=== PATIENT | female | born 1975 | race Caucasian/White ===

== ENCOUNTER 2020-01-15 20:38 | Emergency (ER) | payer OTHER, MEDICAID ==
[~2020-01-15] VITALS: Ht 177.8 cm; Wt 113.4 kg
--- NOTE | 2020-01-15 20:40 | NUR ---
Dr. Cruz examining patient.
--- NOTE | 2020-01-15 20:40 | NUR ---
PT MIKKI WHEELER. TAKEN TO BED 11
[2020-01-15 20:43] VITALS: BP 119/74
--- NOTE | 2020-01-15 20:43 | NUR ---
PT AMBULATED TO WITH ASSIST
--- NOTE | 2020-01-15 20:49 | NUR ---
PT RETURNED FROM RR WITH ASSIST. PT PLACED ON CARDIAC MONTIOR. BED LOCKED AND IN LOWEST POSITION.
--- NOTE | 2020-01-15 20:52 | NUR ---
44 YO F BIBA FOR C/C OF 10/10 LEFT KNEE PAIN AFTER FALLING WHILE WALKING AT [facility]. PT HAS FULL RANGE OF MOTION AT THE JOINT. KNEE IS EDEMATOUS AND SLIGHTY BRUISED WITH A SUPERFICIAL ABRAISION. PT DENIES TAKING ANY MEDICATION FOR THE PAIN. DENIES FEVER, COUGH, TRAVEL, AND SOB. BED LOCKED AND IN LOWEST POSITION. SIDE RAILS X1. CARDIAC MONTIOR IN PLACE. ALLERGIES TO PENICILLIN, ASPIRIN MED HX: SCHIZO AFFECTIVE SCHIZOPHRENIA, JAW SURGEY 1999, KNEE SURGERY 1987 RX: FUROSEMIDE, TOPIRAMATE, TRIHEXYPHEN, SERTRALINE, BUSPIRONE, VALPORIC ACID, CLONAZEPAM
--- NOTE | 2020-01-15 20:53 | NUR ---
ERMD AT BEDSIDE EVALUATING PT
--- NOTE | 2020-01-15 20:55 | NUR ---
EMT AT BEDSIDE CLEANING AND WRAPPING LEFT KNEE.
[2020-01-15] MEDS ORDERED: IBUPROFEN 800 MG TAB PO ONE (21:00)
--- NOTE | 2020-01-15 22:00 | NUR ---
PT RESTING IN BED COMFORTABLY. 10/10 PAIN REDUCED TO 0/10. SAFETY MEASURES IN PLACE.
--- NOTE | 2020-01-15 23:06 | NUR ---
Patient discharged with v/s stable. Written and verbal after care instructions given and explained. Patient alert, oriented and verbalized understanding of instructions. Ambulatory with steady gait. All questions addressed prior to discharge. ID band removed. Patient advised to follow up with PMD. Rx of CIPRO, PREDNISONE, MOTRIN given. Patient educated on indication of medication including possible reaction and side effects. Opportunity to ask questions provided and answered. PT PICKED UP BY TRANSPORTATION FROM [facility].
== END 2020-01-15 23:06 | disposition home or self-care (01) ==
LOC: MED 20:38
DX: S80.02XA Contusion of left knee, initial encounter (principal); S80.212A Abrasion, left knee, initial encounter; N39.0 Urinary tract infection, site not specified; R05 Cough; Z88.0 Allergy status to penicillin; Z88.1 Allergy status to other antibiotic agents; Z98.890 Other specified postprocedural states; W19.XXXA Unspecified fall, initial encounter; Y93.89 Activity, other specified; Y92.89 Other specified places as the place of occurrence of the external cause; Y99.8 Other external cause status
CPT/HCPCS: 81002; 81025; 99282

== ENCOUNTER 2021-05-02 20:08 | Emergency (ER) | payer OTHER, MEDICAID ==
[~2021-05-02] VITALS: Ht 177.8 cm; Wt 101.2 kg
[2021-05-02 20:30] VITALS: BP 160/82
[2021-05-02] MEDS ORDERED: HYDROcodone/APAP 5/325 MG 1 TAB TAB PO ONE (23:10)
--- NOTE | 2021-05-03 00:50 | NUR ---
d/c with VSS> d/c education given. opportunity to ask questions given and answered. provided pt with homeless meal. provided with referral to [facility] clinic.
== END 2021-05-03 00:50 | disposition home or self-care (01) ==
LOC: MED 20:08
DX: S09.90XA Unspecified injury of head, initial encounter (principal); Y04.8XXA Assault by other bodily force, initial encounter; Y93.89 Activity, other specified; Y92.89 Other specified places as the place of occurrence of the external cause; Y99.8 Other external cause status
CPT/HCPCS: 70450; 99284

== ENCOUNTER 2022-08-07 17:14 | Inpatient (IN) | payer OTHER, MEDICAID ==
[~2022-08-07] VITALS: Ht 162.6 cm; Wt 115.7 kg
[2022-08-07 17:26] VITALS: BP 141/80
[2022-08-07 18:19] LABS: BASOPHILS % (AUTO) 0.3 % (0.0-2.0); HEMATOCRIT 41.1 % (36-48); HEMOGLOBIN 13.8 g/dL (12.0-16.0); LYMPHOCYTES % (AUTO) 7.7 % (20.5-51.1); MEAN CORPUSCULAR HEMOGLOBIN 32 pg (27-31); MEAN CORPUSCULAR HGB CONC 34 g/dL (33-37); MEAN CORPUSCULAR VOLUME 94.1 fL (80-94); MONOCYTES # (AUTO) 1.7 K/uL (0.8-1.0); MONOCYTES % (AUTO) 13.4 % (1.7-9.3); NEUTROPHILS # (AUTO) 9.9 K/uL (1.8-7.7); NEUTROPHILS % (AUTO) 78.6 % (42.2-75.2); PLATELET COUNT (AUTO) 142 K/uL (140-450); RED BLOOD CELL COUNT(AUTO) 4.37 MIL/uL (4.20-5.40); RED CELL DISTRIBUTION WIDTH 13.7 % (11.6-13.7); WHITE BLOOD COUNT (AUTO) 12.7 K/uL (4.8-10.8)
[2022-08-07 18:39] LABS: ANION GAP 10.9 (8-16); CARBON DIOXIDE 26.5 mmol/L (21-32); CREATININE 1.2 mg/dL (0.6-1.3); POTASSIUM 3.4 mmol/L (3.5-5.1)
[2022-08-07 18:51] LABS: TOTAL BILIRUBIN 0.6 mg/dL (0.0-1.0)
[2022-08-07 20:08] LABS: APPEARANCE,URINE CLOUDY (CLEAR); BILIRUBIN,URINE 1+ (NEGATIVE); BLOOD, URINE 3+ (NEGATIVE); COLOR,URINE YELLOW (YELLOW); LEUKOCYTE ESTERASE ,URINE 3+ (NEGATIVE); NITRITE, URINE NEGATIVE (NEGATIVE); PH,URINE 8.5 (5.0-9.0); UGLUCOSE NEGATIVE (NEGATIVE)
[2022-08-07 20:22] LABS: RBC,URINE 0-5 /HPF (0-5)
--- NOTE | 2022-08-07 23:13 | NUR ---
PT TO BED #11
--- NOTE | 2022-08-07 23:30 | NUR ---
URINE COLLECTED AND WALKED TO LAB
--- NOTE | 2022-08-07 23:30 | NUR ---
PATIENT CHANGED AND PROVIDED NEW LINEN. BED LOW AND LOCKED. TENNILLE SIDE RAILS FOR SAFETY.
[2022-08-08] MEDS ORDERED: OLANZapine 5 MG TAB PO STA (00:01)
[2022-08-08] MEDS ORDERED: cefTRIAXone 1,000 MG VIAL ONE (01:46)
--- NOTE | 2022-08-08 02:54 | NUR ---
MED REC COMPLETED.
--- NOTE | 2022-08-08 02:58 | NUR ---
PATIENT RESTING WITH EYES CLOSED. DOESNT APPEAR TO BE IN DISTRESS. PATIENT PLACED ON BEDSIDE MONITOR, VSS. BED LOW AND LOCKED. TENNILLE SIDE RAILS FOR SAFETY. ALL NEEDS MET.
--- NOTE | 2022-08-08 05:55 | NUR ---
Patient will be admitted to care of MD Larios. Admited to Med/Surg. Will go to room 121B. Belongings list completed. Report to RAFITA Martin.
--- NOTE | 2022-08-08 05:55 | NUR ---
Report called to med/surg RAFITA Martin. Transfer of care.
[2022-08-08 06:22] VITALS: BP 142/92
--- NOTE | 2022-08-08 06:43 | NUR ---
RECEIVED REPORT OF PATIENT COMING TO 121B BY CAROLYN COMPUTER COMPOSITOR AND DIAN RN. PATIENT WAS STABLE DURING THE TRANSFER. PATIENT WAS TRANSFERRED IN WHEEL CHAIR ABLE TO GO TO THE RESTROOM INDEPENDENTLY. PATIENT CONTINUES TO ASK STAFF TO DO THING FOR HER THAT SHE IS CAPABLE OF DOING. GAVE PATIENT EDUCATION ON THE HOSPITAL, ROOM AND CALL LIGHT FUNCTIONS. PATIENT WAS REMINDED TO ASK FOR ASSISTANCE NOT FOR NURSING TO DO EVERYTHING FOR HER. PATIENT UNDERSTOOD AND REPEATED MULTIPLE TIMES. SKIN CLEAN BUT NURSING NOTED REDNESS TO RIGHT CHIN AND DRY SKIN. NO NOTED OPEN SOARS. PATIENT DENIED ANY PAIN/DISCOMFORT. NO NOTED RESPIRATORY DISTRESS ON ROOM AIR. SIDE RAILS UP X 2. CALL LIGHT WITHIN REACH FOR ASSISTANCE. [id number]
--- NOTE | 2022-08-08 07:33 | NUR ---
GOT REPORT FROM THE NIGHT NURSE, PT SEEPING NO SOB. [id number]
--- NOTE | 2022-08-08 11:06 | NUR ---
DC PLANNING ATTEMPTED TO MEET PT AT BEDSIDE HOWEVER, PT HEAVILY SLEEPING AND COULD NOT STAY UP LONG ENOUGH TO COMPLETE ASSESSMENT. Addendum: 08/11/22 at 1344 by Josh Che SS attempted to complete assessment with pt however, pt would not speak and refused to participate in assessment. pt wrote down on a piece of paper that information was top secret. aleisha called Zulema , [facility] admin who reports pt can return to facility. Zulema reports they will p/up pt. Zulema to call pt nurse for update on meds needed and preferred pharmacy.
--- NOTE | 2022-08-08 11:25 | NUR ---
PATIENT HAS BEEN SCREENED AND CATEGORIZED LOW NUTRITION RISK. PATIENT WILL BE SEEN WITHIN 7 DAYS OF ADMISSION. 08/14/[address]
[2022-08-08] MEDS ORDERED: ACETAMINOPHEN 325 MG TAB PO PRN (11:30)
[2022-08-08] MEDS ORDERED: HYDROcodone/APAP 7.5/325 MG 1 TAB PO PRN (11:30)
[2022-08-08] MEDS ORDERED: ONDANSETRON 4 MG/2 ML VIAL IVP PRN (11:30)
[2022-08-08 11:38] VITALS: BP 113/63
[2022-08-08] MEDS: NACL 0.9% 1,000 ML IV SCH (11:56)
[2022-08-08 13:13] LABS: BASOPHILS % (AUTO) 0.4 % (0.0-2.0); EOSINOPHILS # (AUTO) 0.1 K/uL (0-0.4); EOSINOPHILS % (AUTO) 0.7 % (0.0-4.0); HEMATOCRIT 37.9 % (36-48); HEMOGLOBIN 12.6 g/dL (12.0-16.0); LYMPHOCYTES # (AUTO) 1.3 K/uL (2.5-16.5); LYMPHOCYTES % (AUTO) 12.5 % (20.5-51.1); MEAN CORPUSCULAR HEMOGLOBIN 31 pg (27-31); MEAN CORPUSCULAR HGB CONC 33 g/dL (33-37); MEAN CORPUSCULAR VOLUME 94.1 fL (80-94); MONOCYTES % (AUTO) 18.5 % (1.7-9.3); NEUTROPHILS # (AUTO) 7.2 K/uL (1.8-7.7); NEUTROPHILS % (AUTO) 67.9 % (42.2-75.2); PLATELET COUNT (AUTO) 141 K/uL (140-450); RED BLOOD CELL COUNT(AUTO) 4.02 MIL/uL (4.20-5.40); RED CELL DISTRIBUTION WIDTH 13.6 % (11.6-13.7); WHITE BLOOD COUNT (AUTO) 10.6 K/uL (4.8-10.8)
[2022-08-08 13:21] LABS: ANION GAP 9.4 (8-16); CARBON DIOXIDE 29.1 mmol/L (21-32); CREATININE 0.8 mg/dL (0.6-1.3); POTASSIUM 3.5 mmol/L (3.5-5.1)
[2022-08-08 13:33] LABS: AMYLASE 41 U/L (25-115); CHOL/HDL RATIO 3.1 (1-4.5); FREE T4 (FREE THYROXINE) 1.15 ng/dL (0.76-1.46); HDL CHOLESTEROL 44 mg/dL (40-60); LDL (CALC) 74 mg/dL (60-100); LIPASE 116 U/L (73-393); MAGNESIUM 2.1 mg/dL (1.8-2.4); PHOSPHORUS 3.5 mg/dL (2.5-4.9); THYROID STIMULATING HORMONE 1.91 uIU/mL (0.34-3.74); TRIGLYCERIDES 86 mg/dL (30-150)
[2022-08-08 13:56] LABS: PROTHROMBIN TIME 11.7 secs (10.8-13.4)
[2022-08-08 16:00] VITALS: BP 126/73
--- NOTE | 2022-08-08 18:54 | NUR ---
PT WAS SLEEPING ALMOST ALL DAY, NO PAIN , JUST SAYS SHE IS WEAK AND DON;T FEEL GOOD [id number]
[2022-08-08] MEDS: DOCUSATE SODIUM 100 MG GELCAP PO SCH (20:43)
[2022-08-08 21:07] VITALS: BP 115/55
[2022-08-09 04:41] VITALS: BP 148/78
[2022-08-09] MEDS: NACL 0.9% 1,000 ML IV SCH (05:43)
[2022-08-09 06:12] LABS: BASOPHILS % (AUTO) 0.4 % (0.0-2.0); EOSINOPHILS # (AUTO) 0.1 K/uL (0-0.4); EOSINOPHILS % (AUTO) 0.7 % (0.0-4.0); HEMATOCRIT 37.5 % (36-48); HEMOGLOBIN 12.7 g/dL (12.0-16.0); LYMPHOCYTES # (AUTO) 2.2 K/uL (2.5-16.5); LYMPHOCYTES % (AUTO) 20.8 % (20.5-51.1); MEAN CORPUSCULAR HEMOGLOBIN 32 pg (27-31); MEAN CORPUSCULAR HGB CONC 34 g/dL (33-37); MEAN CORPUSCULAR VOLUME 94.6 fL (80-94); MONOCYTES % (AUTO) 19.4 % (1.7-9.3); NEUTROPHILS # (AUTO) 6.1 K/uL (1.8-7.7); NEUTROPHILS % (AUTO) 58.7 % (42.2-75.2); PLATELET COUNT (AUTO) 122 K/uL (140-450); RED BLOOD CELL COUNT(AUTO) 3.97 MIL/uL (4.20-5.40); RED CELL DISTRIBUTION WIDTH 13.5 % (11.6-13.7); WHITE BLOOD COUNT (AUTO) 10.4 K/uL (4.8-10.8)
[2022-08-09 06:24] LABS: MAGNESIUM 1.9 mg/dL (1.8-2.4); PHOSPHORUS 3.4 mg/dL (2.5-4.9)
[2022-08-09 06:28] LABS: ANION GAP 10.4 (8-16); CARBON DIOXIDE 29.2 mmol/L (21-32); CREATININE 0.9 mg/dL (0.6-1.3); POTASSIUM 3.6 mmol/L (3.5-5.1)
[2022-08-09] MEDS: DOCUSATE SODIUM 100 MG GELCAP PO SCH ×2 (09:00→20:20)
[2022-08-09] MEDS: PANTOPRAZOLE 40 MG INJ VIAL IVP SCH (09:00)
[2022-08-09 10:00] VITALS: BP 142/71
[2022-08-09 13:00] VITALS: BP 140/68
[2022-08-09 16:30] VITALS: BP 140/72
--- NOTE | 2022-08-09 19:25 | NUR ---
RECEIVED REPORT FROM DAY NURSE FOR CONTINUITY OF CARE. PATIENT LYING ON THE BED, NO SIGNS OF PAIN NOTED, NO SIGNS OF DISTRESS NOTED.
[2022-08-09 20:00] VITALS: BP 112/68
--- NOTE | 2022-08-09 20:25 | NUR ---
DUE MEDICATION GIVEN ORDERED, PATIENT C/O HEADACHE, GIVEN PRN TYLENOL 650MG. CALL LIGHT WITHIN REACH. SAFETY PRECAUTIONS IN PLACE. WILL CONTINUE TO MONITOR THE PATIENT.
--- NOTE | 2022-08-09 23:15 | NUR ---
DUE MEDICATION GIVEN ORDERED, PATIENT DENIES PAIN, NO SIGNS OF DISTRESS NOTED. BEDSIDE CARE DONE. CALL LIGHT WITHIN REACH. BED LOCKED AND IN LOW POSITION. WILL CONTINUE TO MONITOR THE PATIENT.
[2022-08-10] VITALS: BP 108/59
--- NOTE | 2022-08-10 01:07 | NUR ---
PATIENT IS ASLEEP, NO SIGNS OF PAIN NOTED, NO SIGNS OF DISTRESS NOTED. CALL LIGHT WITHIN REACH.
[2022-08-10] MEDS: NACL 0.9% 1,000 ML IV SCH (03:19)
[2022-08-10 04:00] VITALS: BP 107/64
--- NOTE | 2022-08-10 04:10 | NUR ---
MORNING CARE DONE, VITALS T 97.2, P 71, BP 107/64, RESP 18, O2 SATS 97% ON ROOM AIR. PATIENT DENIES PAIN, NO SIGNS OF DISTRESS NOTED. IV LINE ON RIGHT WRIST G22, RUNNING NS 0.9% 50MLS/HR. CALL LIGHT WITHIN REACH, SAFETY PRECAUTIONS IN PLACE. WILL CONTINUE TO MONITOR THE PATIENT.
--- NOTE | 2022-08-10 07:17 | NUR ---
ENDORSED PATIENT TO DAY NURSE FOR CONTINUITY OF CARE. PATIENT IS STABLE.
--- NOTE | 2022-08-10 07:46 | NUR ---
GOT REPORT FROM THE NIGHT NURSE, PT SITTING AT BED, NO SOB DISCUSSED THE POC. [id number]
[2022-08-10 08:00] VITALS: BP 104/69
[2022-08-10] MEDS: PANTOPRAZOLE 40 MG INJ VIAL IVP SCH (08:49)
[2022-08-10] MEDS: DOCUSATE SODIUM 100 MG GELCAP PO SCH ×2 (08:50→20:35)
[2022-08-10 11:14] LABS: BASOPHILS % (AUTO) 0.5 % (0.0-2.0); EOSINOPHILS # (AUTO) 0.2 K/uL (0-0.4); EOSINOPHILS % (AUTO) 1.7 % (0.0-4.0); HEMATOCRIT 39.1 % (36-48); HEMOGLOBIN 12.9 g/dL (12.0-16.0); LYMPHOCYTES # (AUTO) 2.3 K/uL (2.5-16.5); LYMPHOCYTES % (AUTO) 22.8 % (20.5-51.1); MEAN CORPUSCULAR HEMOGLOBIN 31 pg (27-31); MEAN CORPUSCULAR HGB CONC 33 g/dL (33-37); MEAN CORPUSCULAR VOLUME 94.6 fL (80-94); MONOCYTES # (AUTO) 1.6 K/uL (0.8-1.0); MONOCYTES % (AUTO) 16.2 % (1.7-9.3); NEUTROPHILS # (AUTO) 5.8 K/uL (1.8-7.7); NEUTROPHILS % (AUTO) 58.8 % (42.2-75.2); PLATELET COUNT (AUTO) 166 K/uL (140-450); RED BLOOD CELL COUNT(AUTO) 4.13 MIL/uL (4.20-5.40); RED CELL DISTRIBUTION WIDTH 13.9 % (11.6-13.7); WHITE BLOOD COUNT (AUTO) 9.9 K/uL (4.8-10.8)
[2022-08-10 11:46] LABS: ANION GAP 14.5 (8-16); CARBON DIOXIDE 27.2 mmol/L (21-32); CREATININE 0.8 mg/dL (0.6-1.3); POTASSIUM 3.7 mmol/L (3.5-5.1)
[2022-08-10 11:50] LABS: PHOSPHORUS 3.4 mg/dL (2.5-4.9)
[2022-08-10 12:00] VITALS: BP 115/72
[2022-08-10 17:23] VITALS: BP 98/68
--- NOTE | 2022-08-10 19:00 | NUR ---
RECEIVED REPORT FROM DAY NURSE FOR CONTINUITY OF CARE. IV SITE INFILTRATED. ASSUMED CARE.
--- NOTE | 2022-08-10 19:22 | NUR ---
PT IV INFILTRATED, TRIED TO START IV PT REFUSED , INFORMED HER THAT SHE NEEDS IV ANTIBIOTIC AND PT SAYS " I REFUSED" I DO NOT WANT, PASSED TO THE NIGHT NURSE, INCASE PT CHANGE HER MIND.[email or web address]
[2022-08-10 20:00] VITALS: BP 155/95
--- NOTE | 2022-08-10 20:36 | NUR ---
DUE MEDICATION GIVEN ORDERED. PATIENT IS SITTING ON THE CHAIR, DENIES PAIN, NO DISTRESS NOTED. PATIENT IS WEARING NON SKID SOCKS. WILL CONTINUE TO MONITOR THE PATIENT.
--- NOTE | 2022-08-10 20:59 | NUR ---
NOTIFIED DR FROST THAT THE PATIENT IV GOT INFILTRATED AND PT REFUSED TO PLACE A NEW IV AND REFUSED TELE MONITOR. DR FROST AWARE AND NEW ORDERS GIVEN AND WILL CARRY IT OUT.
--- NOTE | 2022-08-10 21:41 | NUR ---
CALLED [employer] [phone], SPOKE WITH [employer] ([employer] COMPLIANCE MANAGER) AND MADE AWARE THAT THERE IS AN ORDER FOR PSYCH CONSULT WITH DR SOLITARIO. AWAITING FOR MD TO CALL BACK.
--- NOTE | 2022-08-10 21:44 | NUR ---
DR SOLITARIO CALLED BACK AND GAVE BRIEF REPORT ABOUT THE PATIENT. PER DR SOLITARIO HE WILL BE HERE TOMORROW TO SEE THE PATIENT. NO FURTHER ORDER GIVEN.
[2022-08-10] MEDS ORDERED: cefTRIAXone 1,000 MG VIAL IM SCH (23:00)
--- NOTE | 2022-08-10 23:14 | NUR ---
PATIENT IS STILL SITTING AT THE FOOT SIDE OF ROOM MATE'S BED, PATIENT IS WEARING NON SKID SOCKS. PATIENT DENIES PAIN OR DISCOMFORT AT THIS TIME. WILL CONTINUE TO MONITOR THE PATIENT.
[2022-08-11] VITALS: BP 158/59
--- NOTE | 2022-08-11 01:49 | NUR ---
PATIENT LYING ON THE BED, AWAKE, DENIES PAIN, NO SIGNS OF DISTRESS NOTED. CALL LIGHT WITHIN REACH. BED IN LOW AND LOCKED POSITION. WILL CONTINUE TO MONITOR THE PATIENT.
--- NOTE | 2022-08-11 03:30 | NUR ---
PATIENT AWAKE AND LAYING IN BED QUIETLY STATE THAT SHE IS TRYING TO RELAX. ASSISTED THE PATIENT TO THE BATHROOM AND BACK TO BED. HAD BM.
[2022-08-11 04:00] VITALS: BP 135/80
--- NOTE | 2022-08-11 06:19 | NUR ---
NO ACUTE EVENT THROUGHOUT THE NIGHT. PATIENT STABLE AND NOT ON ANY DISTRESS. ALL NEEDS ATTENDED. CALL LIGHT WITHIN REACH. WILL ENDORSE THE PATIENT TO THE ONCOMING NURSE FOR CONTINUITY OF CARE.
--- NOTE | 2022-08-11 07:23 | NUR ---
ENDORSED PATIENT TO DAY NURSE FOR CONTINUITY OF CARE. PATIENT IS STABLE.
[2022-08-11 08:00] VITALS: BP 96/65
[2022-08-11] MEDS: PANTOPRAZOLE 40 MG INJ VIAL IVP SCH (08:28)
[2022-08-11] MEDS: DOCUSATE SODIUM 100 MG GELCAP PO SCH (08:29)
[2022-08-11 12:00] VITALS: BP 108/68
[2022-08-11] MEDS ORDERED: QUET50TA PO (13:48)
[2022-08-11 14:27] VITALS: BP 108/68
--- NOTE | 2022-08-11 15:24 | NUR ---
DISCHARGE INSTRUCTIONS AND PLAN OF CARE DISCUSSED WITH PATIENT. PATIENT VERBALIZED UNDERSTANDING. PATIENT PICKED UP BY [facility]. Linda DOYLE RN.
== END 2022-08-11 16:05 | disposition home or self-care (01) | DRG 871 ==
LOC: MED 17:14 → MTU 22:53
DX: A41.9 Sepsis, unspecified organism (principal); G93.41 Metabolic encephalopathy; N39.0 Urinary tract infection, site not specified; E44.1 Mild protein-calorie malnutrition; J98.11 Atelectasis; Z68.41 Body mass index [BMI] 40.0-44.9, adult; E87.5 Hyperkalemia; F31.9 Bipolar disorder, unspecified; I10 Essential (primary) hypertension; E66.9 Obesity, unspecified; R48.0 Dyslexia and alexia; F20.9 Schizophrenia, unspecified; Z88.0 Allergy status to penicillin; Z88.6 Allergy status to analgesic agent
CPT/HCPCS: 36415; 71045; 80048; 80053; 80178; 81001; 82140; 82150; 83036; 83605; 83690; 83735; 83880; 84100; 84439; 84443; 84484; 85025; 85610; 85730; 87040; 87081; 87086; 93005; 97163-GP; 99285; C9113; J0696; J7060

== ENCOUNTER 2022-08-25 10:56 | Emergency (ER) | payer OTHER, MEDICAID ==
[~2022-08-25] VITALS: Ht 175.3 cm; Wt 101.2 kg
[~2022-08-25 10:56] MED LIST: QUET50TA PO
[2022-08-25 11:09] VITALS: BP 93/60
[2022-08-25] MEDS ORDERED: IBUPROFEN 600 MG TAB PO ONE (12:35)
[2022-08-25] MEDS ORDERED: IBUP-2213 PO (14:30)
[2022-08-25] MEDS ORDERED: BACITRACIN OINT 500 UNITS/GM PKT TP ONE (14:30)
[2022-08-25] MEDS ORDERED: BACI-416 TP (14:30)
--- NOTE | 2022-08-25 14:44 | NUR ---
PT L KNEE WRAPPED WITH PEGGY WRAP X 1 AND BANDAID APPLIED ON WOUND.
--- NOTE | 2022-08-25 14:56 | NUR ---
Patient discharged with v/s stable. Written and verbal after care instructions given and explained. Patient alert, oriented and verbalized understanding of instructions. Ambulatory with steady gait. All questions addressed prior to discharge. ID band removed. Patient advised to follow up with PMD. Rx of BACITRACIN AND IBUPROFEN given. Patient educated on indication of medication including possible reaction and side effects. Opportunity to ask questions provided and answered.
--- NOTE | 2022-08-25 15:14 | NUR ---
HOUSE SUP CONTACTED FOR UBER BACK TO DETENTION
== END 2022-08-25 15:44 | disposition home or self-care (01) ==
LOC: MED 10:56
DX: S83.92XA Sprain of unspecified site of left knee, initial encounter (principal); Z88.0 Allergy status to penicillin; Z79.82 Long term (current) use of aspirin; W18.30XA Fall on same level, unspecified, initial encounter; Y93.89 Activity, other specified; Y92.89 Other specified places as the place of occurrence of the external cause; Y99.8 Other external cause status
CPT/HCPCS: 73560; 99283

== ENCOUNTER 2022-12-25 17:40 | Emergency (ER) | payer OTHER, MEDICAID ==
[~2022-12-25] VITALS: Ht 172.7 cm; Wt 95.3 kg
[~2022-12-25 17:40] MED LIST changes: +BACI-416 TP; +IBUP-2213 PO
[2022-12-25 17:41] VITALS: BP 124/70
[2022-12-25] MEDS ORDERED: BACITRACIN OINT 500 UNITS/GM PKT TP ONE (18:05)
[2022-12-25] MEDS ORDERED: NACL 0.9% 1,000 ML IV ONE (18:05)
[2022-12-25] MEDS ORDERED: KETOROLAC 30 MG/ML VIAL IVP ONE (18:05)
--- NOTE | 2022-12-25 18:07 | NUR ---
47 Y/O F PT BIBA BLS RUN C/O FALL D/T DIZZINESS . C/O HEADACHE. GCS 15. PMH: HTN, PSYCH
[2022-12-25 18:48] LABS: BASOPHILS # (AUTO) 0.1 K/uL (0.00-0.22); BASOPHILS % (AUTO) 1.1 % (0.0-2.0); EOSINOPHILS # (AUTO) 0.1 K/uL (0-0.4); EOSINOPHILS % (AUTO) 1.8 % (0.0-4.0); HEMATOCRIT 41.7 % (36-48); HEMOGLOBIN 14.5 g/dL (12.0-16.0); LYMPHOCYTES # (AUTO) 3.2 K/uL (2.5-16.5); LYMPHOCYTES % (AUTO) 50.7 % (20.5-51.1); MEAN CORPUSCULAR HEMOGLOBIN 32 pg (27-31); MEAN CORPUSCULAR HGB CONC 35 g/dL (33-37); MEAN CORPUSCULAR VOLUME 93.1 fL (80-94); MONOCYTES % (AUTO) 16.1 % (1.7-9.3); NEUTROPHILS # (AUTO) 1.9 K/uL (1.8-7.7); NEUTROPHILS % (AUTO) 30.3 % (42.2-75.2); PLATELET COUNT (AUTO) 129 K/uL (140-450); RED BLOOD CELL COUNT(AUTO) 4.48 MIL/uL (4.20-5.40); RED CELL DISTRIBUTION WIDTH 14.2 % (11.6-13.7); WHITE BLOOD COUNT (AUTO) 6.4 K/uL (4.8-10.8)
[2022-12-25 19:05] LABS: ANION GAP 15.8 (8-16); CARBON DIOXIDE 31.5 mmol/L (21-32); POTASSIUM 5.3 mmol/L (3.5-5.1)
--- NOTE | 2022-12-25 19:18 | NUR ---
GAVE REPORT TO CANDICE HORNER.
--- NOTE | 2022-12-25 19:42 | NUR ---
PT TO CT
--- NOTE | 2022-12-25 19:56 | NUR ---
PT BACK FROM CT
--- NOTE | 2022-12-25 20:28 | NUR ---
URINE COLLECTED AND SENT TO LAB
[2022-12-25 20:37] LABS: BILIRUBIN,URINE NEGATIVE (NEGATIVE); BLOOD, URINE NEGATIVE (NEGATIVE); COLOR,URINE YELLOW (YELLOW); LEUKOCYTE ESTERASE ,URINE 2+ (NEGATIVE); NITRITE, URINE NEGATIVE (NEGATIVE); UGLUCOSE NEGATIVE (NEGATIVE)
[2022-12-25 20:39] LABS: APPEARANCE,URINE HAZY (CLEAR)
[2022-12-25 20:53] LABS: RBC,URINE NONE SEEN /HPF (0-5); WBC,URINE 80-100 /HPF (0-5)
--- NOTE | 2022-12-25 21:05 | NUR ---
FOOD PROVIDE TO PT
[2022-12-25 21:09] VITALS: BP 103/51
[2022-12-25] MEDS ORDERED: cefTRIAXone 1,000 MG VIAL ONE (21:56)
[2022-12-25 22:04] LABS: BARBITURATE, URINE NEGATIVE ng/ml (NEG <=200); BENZODIAZEPINE, URINE POSITIVE ng/mL (NEG <=200); CANNABINOID, URINE NEGATIVE ng/mL (NEG <=50); COCAINE, URINE NEGATIVE ng/mL (NEG <=300); OPIATE, URINE NEGATIVE ng/mL (NEG <=2000); PHENCYCLIDINE SCREEN,URINE NEGATIVE ng/mL (NEG <=25)
[2022-12-25] MEDS ORDERED: NITR-141 PO (22:35)
[2022-12-25] MEDS ORDERED: MECL-303 PO (22:36)
--- NOTE | 2022-12-26 01:31 | NUR ---
Patient discharged with v/s stable. Written and verbal after care instructions given and explained. Patient verbalized understanding. Ambulatory with by caregiver. All questions addressed prior to discharge. Advised to follow up with PMD.
== END 2022-12-26 01:31 | disposition home or self-care (01) ==
LOC: MED 17:40
DX: S80.212A Abrasion, left knee, initial encounter (principal); R42 Dizziness and giddiness; I10 Essential (primary) hypertension; J45.909 Unspecified asthma, uncomplicated; Z79.899 Other long term (current) drug therapy; Z79.1 Long term (current) use of non-steroidal anti-inflammatories (NSAID); Z79.2 Long term (current) use of antibiotics; Z88.0 Allergy status to penicillin; Z88.6 Allergy status to analgesic agent; W18.39XA Other fall on same level, initial encounter; Y92.89 Other specified places as the place of occurrence of the external cause; Y93.89 Activity, other specified; Y99.8 Other external cause status
CPT/HCPCS: 36415; 70450; 80048; 80305; 81001; 85025; 87086; 96361; 96365; 96375; 99285; J0696; J1885; J7030; 87040

== ENCOUNTER 2023-06-12 19:01 | Emergency (ER) | payer OTHER, MEDICAID ==
[~2023-06-12] VITALS: Ht 175.3 cm; Wt 99.8 kg
[~2023-06-12 19:01] MED LIST changes: -BACI-416 TP; +BACI-418 TP; +MECL-303 PO; +NITR-141 PO
[2023-06-12 19:43] VITALS: BP 136/77; PULSE 92; RESP 16; TEMP 97.4; O2SAT 98
[2023-06-12] MEDS ORDERED: MORPHINE SULFATE 4 MG/ML SYR IM ONE (21:20)
[2023-06-12] MEDS ORDERED: ONDANSETRON 4 MG ODT PO ONE (21:20)
[2023-06-12 21:43] LABS: APPEARANCE,URINE CLEAR (CLEAR); BILIRUBIN,URINE 1+ (NEGATIVE); BLOOD, URINE NEGATIVE (NEGATIVE); COLOR,URINE YELLOW (YELLOW); LEUKOCYTE ESTERASE ,URINE 2+ (NEGATIVE); NITRITE, URINE NEGATIVE (NEGATIVE); PROTEIN,URINE NEGATIVE (NEGATIVE); UGLUCOSE NEGATIVE (NEGATIVE)
[2023-06-12 21:55] LABS: ICTOTEST NEGATIVE (NEGATIVE)
[2023-06-12 21:56] LABS: BACTERIA,URINE 2+ /HPF (None Seen); MUCUS,URINE 1+ /LPF (None Seen); RBC,URINE 0-5 /HPF (0-5); SQUAMOUS EPITHELIAL CELL,UR 4-10 (MOD) /LPF (0-3 (FEW)); TRICHOMONAS,URINE None Seen /HPF (None Seen); YEAST,URINE None Seen /HPF (None Seen)
[2023-06-12] MEDS ORDERED: NITROFURANTOIN 100 MG CAP PO ONE (22:25)
[2023-06-12] MEDS ORDERED: HYDROcodone/APAP 5/325 MG 1 TAB TAB PO ONE (22:25)
[2023-06-12] MEDS ORDERED: NITR100C7 PO (22:35)
[2023-06-12] MEDS ORDERED: NAPR-1704 PO (22:35)
[2023-06-12 23:29] VITALS: BP 137/85; PULSE 88; RESP 17; TEMP 97.4; O2SAT 98
[2023-06-13] MEDS ORDERED: NAPR-1704 PO (08:13)
[2023-06-13] MEDS ORDERED: NITR100C7 PO (08:13)
== END 2023-06-12 23:29 | disposition home or self-care (01) ==
LOC: MED 19:01
DX: N39.0 Urinary tract infection, site not specified (principal); J45.909 Unspecified asthma, uncomplicated; I10 Essential (primary) hypertension; Z79.899 Other long term (current) drug therapy; Z79.1 Long term (current) use of non-steroidal anti-inflammatories (NSAID); Z79.2 Long term (current) use of antibiotics; Z88.0 Allergy status to penicillin; Z88.6 Allergy status to analgesic agent
CPT/HCPCS: 81001; 81025; 87086; 99283